=== PATIENT | female | born 1970 | race Two or more races ===

== ENCOUNTER 2016-08-07 14:40 | Emergency (ER) | payer BC ==
[~2016-08-07] VITALS: Ht 170.2 cm; Wt 92.1 kg
[~2016-08-07 14:40] MED LIST: CITA40TA22 PO; ONDA4TAB8 SL; PREVACID PO; VENL25TA4 PO
[2016-08-07] MEDS: ACETAMINOPHEN 325 MG TABLET PO ONE (15:30)
[2016-08-07] MEDS ORDERED: ACETAMINOPHEN ES 500 MG TABLET ONE (15:33)
[2016-08-07 15:37] LABS: *URINE HCG, QUAL NEGATIVE (NEGATIVE)
[2016-08-07 15:43] LABS: *BILIRUBIN,URIN NEGATIVE (NEGATIVE); *BLOOD, URINE NEGATIVE (NEGATIVE); *CLARITY,URINE SLIGHTLY CLOUDY (CLEAR); *COLOR,URINE YELLOW (YELLOW); *KETONES,URINE TRACE (NEGATIVE); *PROTEIN,URINE NEGATIVE (NEGATIVE); LEUKOCYTE ESTERASE ,URINE 1+ (NEGATIVE); NITRITE, URINE NEGATIVE (NEGATIVE); UGLUCOSE NEGATIVE (NEGATIVE)
[2016-08-07 15:52] LABS: RBC,URINE 0-3 /HPF (0-3)
[2016-08-07 15:53] LABS: BACTERIA,URINE FEW /HPF (NONE SEEN); SQUAMOUS EPITHELIAL CELL,UR MODERATE /HPF (NONE SEEN); WBC,URINE 20-50 /HPF (0-3)
--- NOTE | 2016-08-07 16:38 | NUR ---
Patient discharged to home in stable conditon. Written and verbal after care instructions given. Patient verbalizes understanding of instructions.
== END 2016-08-07 16:49 | disposition home or self-care (01) ==
LOC: ER 14:40
DX: S16.1XXA Strain of muscle, fascia and tendon at neck level, initial encounter (principal); F41.9 Anxiety disorder, unspecified; F32.9 Major depressive disorder, single episode, unspecified; M54.5 Low back pain; V89.2XXA Person injured in unspecified motor-vehicle accident, traffic, initial encounter; Y93.89 Activity, other specified; Y99.8 Other external cause status; Y92.89 Other specified places as the place of occurrence of the external cause; Z88.6 Allergy status to analgesic agent
CPT/HCPCS: 72125; 72131; 84703; A4663